=== PATIENT | female | born 1990 | race Caucasian/White ===

== ENCOUNTER 2019-01-11 13:50 | Emergency (ER) | payer SELFPAY, OTHER ==
[2019-01-11] MEDS: LIDOCAINE 1% (MPF) 5 ML VIAL INJ (14:40)
[2019-01-11] MEDS: ONDANSETRON (ODT) 4 MG TAB ODT (15:28)
[2019-01-11] MEDS: HYDROCODONE/APAP (5/325) TAB PO (15:28)
== END 2019-01-11 15:38 | disposition home or self-care (01) ==
LOC: FTE 13:50
DX: N75.0 Cyst of Bartholin's gland (principal)
CPT/HCPCS: 56405; 99283-25

== ENCOUNTER 2019-01-13 12:56 | Emergency (ER) | payer SELFPAY ==
[2019-01-13] MEDS: LIDOCAINE 2% (MDV) 20 ML INJ INJ (13:29)
[2019-01-13] MEDS: ACETAMINOPHEN 500 MG TAB PO (13:34)
[2019-01-13] MEDS: KETOROLAC 30 MG INJ IV (14:42)
[2019-01-13] MEDS: SOD CHLORIDE 0.9% 500 ML IV (14:43)
[2019-01-13] MEDS: CLINDAMYCIN 600 MG/D5W (PMX) 50 ML IVPB (14:44)
[2019-01-13 14:45] LABS: ADD MAN DIFF? NO
[2019-01-13 14:50] LABS: ABNORMAL IP MESSAGE 1; BASOPHIL # 0.1 10^3/ul (0.0-0.1); BASOPHILS % 0.7 % (0.0-2.0); EOSINOPHILS # 0.1 10^3/ul (0.0-0.5); EOSINOPHILS % 0.8 % (0.0-7.0); HEMATOCRIT 41.8 % (37.0-47.0); HEMOGLOBIN 13.9 g/dl (12.0-16.0); LYMPHOCYTES # 2.7 10^3/ul (0.8-2.9); LYMPHOCYTES % 19.3 % (15.0-51.0); MEAN CORPUSCULAR HEMOGLOBIN 31.6 pg (29.0-33.0); MEAN CORPUSCULAR HGB CONC 33.3 g/dl (32.0-37.0); MEAN PLATELET VOLUME 10.1 fl (7.4-10.4); MONOCYTE # 1.5 10^3/ul (0.3-0.9); MONOCYTES % 11.2 % (0.0-11.0); NEUTROPHIL # 9.2 10^3/ul (1.6-7.5); NEUTROPHILS % 66.8 % (39.0-77.0); PLATELET COUNT 267 10^3/UL (140-415); RED CELL DISTRIBUTION WIDTH 12.8 % (11.5-14.5)
[2019-01-13 14:50] LABS: WHITE BLOOD COUNT 13.8 10^3/ul (4.8-10.8)
[2019-01-13 14:51] LABS: POSITIVE DIFF @See below
[2019-01-13 14:54] LABS: PLATELET COUNT 267 10^3/UL (140-415)
[2019-01-13 15:06] LABS: ALBUMIN/GLOBULIN RATIO 0.95; ANION GAP 12 (5-13); Estimated GFR > 60 mL/min (>60)
[2019-01-13 15:09] LABS: INR 1.02; PROTIME 13.5 Sec (11.9-14.9); PT RATIO 1.1
[2019-01-13 15:10] LABS: PARTIAL THROMBOPLASTIN TIME 33.3 Sec (23.0-35.0); THROMBIN TIME 13.9 SEC (13.8-19.1)
[2019-01-13 15:22] LABS: ALANINE AMINOTRANSFERASE 19 IU/L (13-69); ALKALINE PHOSPHATASE 131 IU/L (42-121); ASPARTATE AMINO TRANSFERASE 22 IU/L (15-46); BILIRUBIN,INDIRECT 0.3 mg/dl (0-1.1); BILIRUBIN,TOTAL 0.3 mg/dl (0.2-1.3); BLOOD UREA NITROGEN 13 mg/dl (7-20); CALCIUM 9.3 mg/dl (8.4-10.2); CARBON DIOXIDE 28 mmol/L (21-31); CHLORIDE 104 mmol/L (97-110); CREATININE 0.64 mg/dl (0.44-1.00); GLUCOSE 98 mg/dl (70-220); POTASSIUM 3.1 mmol/L (3.5-5.1); SODIUM 144 mmol/L (135-144); TOTAL PROTEIN 8.2 g/dl (6.1-8.1)
[2019-01-13] MEDS: POTASSIUM CHLORIDE (SR) 20 MEQ TAB PO (15:39)
[2019-01-13] MEDS: SOD CHLORIDE 0.9% 100 ML (16:03)
[2019-01-13] MEDS: IOHEXOL 300MG/ML 150 ML BTL (16:03)
== END 2019-01-13 17:18 | disposition home or self-care (01) ==
LOC: FTE 12:56
DX: N75.8 Other diseases of Bartholin's gland (principal); E87.6 Hypokalemia; N75.1 Abscess of Bartholin's gland
CPT/HCPCS: 56420; 72193; 80053; 81025; 84703; 85025; 85049; 85610; 85670; 85730; 96365; 96375; 99285-25